=== PATIENT | female | born 1930 | race Caucasian/White ===

== ENCOUNTER 2017-11-01 10:16 | Inpatient (IN) | payer MEDICARE, OTHER ==
[2017-11-01 11:03] LABS: BASO % 0.2 % (0.0-1.0); EOS % 0.1 % (0.0-3.0); HEMATOCRIT 43.4 % (36.0-47.0); HEMOGLOBIN 14.6 g/dl (12.0-15.5); IMMATURE GRANULOCYTE % 0.2 % (0-3.0); MEAN CORPUSCULAR HEMOGLOBIN 32.7 pg (27.0-33.0); MEAN CORPUSCULAR HGB CONC 33.6 g/dl (32.0-36.5); MEAN CORPUSCULAR VOLUME 97.3 fl (80.0-96.0); MONO # 1.2 10^3/uL (0.0-0.8); MONO % 9.6 % (0.0-5.0); NEUTROPHILS # 9.8 10^3/uL (1.8-7.7); NEUTROPHILS % 81.9 % (36.0-66.0); PLATELET COUNT, AUTOMATED 167 10^3/uL (150-450); RED BLOOD COUNT 4.46 10^6/uL (4.00-5.40); RED CELL DISTRIBUTION WIDTH 12.9 % (11.5-14.5)
[2017-11-01 11:14] LABS: ANION GAP 5 MEQ/L (8-16); BLOOD UREA NITROGEN 17 MG/DL (7-18); CALCIUM LEVEL 9.1 MG/DL (8.8-10.2); CARBON DIOXIDE LEVEL 32 MEQ/L (21-32); CHLORIDE LEVEL 104 MEQ/L (98-107); CPK CREATINE PHOSPHOKINASE 64 U/L (26-192); CREATININE FOR GFR 1.06 MG/DL (0.55-1.30); GLOMERULAR FILTRATION RATE 52.1 (>32); GLUCOSE, FASTING 146 MG/DL (70-100); MAGNESIUM LEVEL 2.1 MG/DL (1.8-2.4); POTASSIUM SERUM 3.9 MEQ/L (3.5-5.1); SODIUM LEVEL 141 MEQ/L (136-145); TROPONIN I < 0.02 NG/ML (< 0.10)
[2017-11-01 11:20] LABS: CK-MB VALUE MASS 1.1 NG/ML (<3.6); FREE T4 0.91 NG/DL (0.76-1.46); MB/CK RELATIVE INDEX 1.71 (< OR =4); NT-PRO BNP 4862 PG/ML (<450)
[2017-11-01 11:21] LABS: INR 1.22; PARTIAL THROMBOPLASTIN TIME 29.6 SECONDS (26.8-37.9); PROTHROMBIN TIME 15.6 SECONDS (12.4-14.5)
[2017-11-01] MEDS: FUROSEMIDE 40 MG/4 ML VIAL (J1940) IV (11:48)
[2017-11-01 11:55] LABS: ALBUMIN 3.4 GM/DL (3.2-5.2); ALBUMIN/GLOBULIN RATIO 0.77 (1.00-1.93); ALKALINE PHOSPHATASE 75 U/L (45-117); ALT/SGPT 16 U/L (12-78); AST/SGOT 18 U/L (7-37); BILIRUBIN,DIRECT 0.3 MG/DL (0.0-0.2); BILIRUBIN,TOTAL 1.5 MG/DL (0.2-1.0); TOTAL PROTEIN 7.8 GM/DL (6.4-8.2)
[2017-11-01] MEDS: METOPROLOL TART 25 MG TABLET PO ×3 (12:26→20:16)
[2017-11-01] MEDS: METOPROLOL 5 MG/5 ML VIAL IV ×6 (12:26→13:55)
[2017-11-01] MEDS: DOCUSATE SODIUM 100 MG CAP PO (16:30)
[2017-11-01 19:02] LABS: CK-MB VALUE MASS < 1.0 NG/ML (<3.6); CPK CREATINE PHOSPHOKINASE 65 U/L (26-192); MB/CK RELATIVE INDEX 1.53 (< OR =4); TROPONIN I < 0.02 NG/ML (< 0.10)
[2017-11-01] MEDS: APIXABAN 2.5 MG TAB (ELIQUIS) PO (20:16)
[2017-11-01] MEDS ORDERED: METOPROLOL TART 25 MG TABLET PO (21:00)
[2017-11-02] MEDS: SODIUM CHLORIDE 0.9% 1000 ML IV (00:17)
[2017-11-02 00:50] LABS: BASO % 0.2 % (0.0-1.0); EOS % 0.1 % (0.0-3.0); HEMATOCRIT 40.1 % (36.0-47.0); HEMOGLOBIN 13.7 g/dl (12.0-15.5); IMMATURE GRANULOCYTE % 0.5 % (0-3.0); LYMPH # 1.1 10^3/uL (1.5-4.5); LYMPH % 8.3 % (24.0-44.0); MEAN CORPUSCULAR HEMOGLOBIN 32.5 pg (27.0-33.0); MEAN CORPUSCULAR HGB CONC 34.2 g/dl (32.0-36.5); MEAN CORPUSCULAR VOLUME 95.2 fl (80.0-96.0); MONO # 1.5 10^3/uL (0.0-0.8); MONO % 11.5 % (0.0-5.0); NEUTROPHILS # 10.6 10^3/uL (1.8-7.7); NEUTROPHILS % 79.4 % (36.0-66.0); PLATELET COUNT, AUTOMATED 151 10^3/uL (150-450); RED BLOOD COUNT 4.21 10^6/uL (4.00-5.40); WHITE BLOOD COUNT 13.3 10^3/uL (4.0-10.0)
[2017-11-02] MEDS: METOPROLOL TART 25 MG TABLET PO ×3 (01:03→21:01)
[2017-11-02 01:14] LABS: LACTIC ACID SEPSIS PROTOCOL 1.1 MMOL/L (0.4-2.0)
[2017-11-02] MEDS: VANCOMYCIN HCL 1,000 MG, VIAL MATE ADAPTER 1 EACH in D5W 250 ML IV (01:51)
[2017-11-02] MEDS: ACETAMINOPHEN TAB 650MG DOSE (2X325MG) PO ×2 (01:52→14:29)
[2017-11-02] MEDS ORDERED: AZTREONAM 1 GM in D5W MINI-BAG PLUS 50 ML IV (02:00)
[2017-11-02] MEDS: AZTREONAM 1 GM in D5W MINI-BAG PLUS 50 ML IV (02:55)
[2017-11-02] MEDS: METOPROLOL 5 MG/5 ML VIAL IV (03:55)
[2017-11-02 04:33] LABS: HEMATOCRIT 37.9 % (36.0-47.0); HEMOGLOBIN 13.1 g/dl (12.0-15.5); MEAN CORPUSCULAR HGB CONC 34.6 g/dl (32.0-36.5); MEAN CORPUSCULAR VOLUME 95.5 fl (80.0-96.0); PLATELET COUNT, AUTOMATED 145 10^3/uL (150-450); RED BLOOD COUNT 3.97 10^6/uL (4.00-5.40); RED CELL DISTRIBUTION WIDTH 12.8 % (11.5-14.5); WHITE BLOOD COUNT 12.9 10^3/uL (4.0-10.0)
[2017-11-02 04:59] LABS: ANION GAP 9 MEQ/L (8-16); BLOOD UREA NITROGEN 19 MG/DL (7-18); CALCIUM LEVEL 8.5 MG/DL (8.8-10.2); CARBON DIOXIDE LEVEL 26 MEQ/L (21-32); CHLORIDE LEVEL 103 MEQ/L (98-107); CREATININE FOR GFR 0.91 MG/DL (0.55-1.30); GLOMERULAR FILTRATION RATE > 60.0 (>32); GLUCOSE, FASTING 142 MG/DL (70-100); POTASSIUM SERUM 3.4 MEQ/L (3.5-5.1); SODIUM LEVEL 138 MEQ/L (136-145)
[2017-11-02] MEDS: APIXABAN 2.5 MG TAB (ELIQUIS) PO (08:47)
[2017-11-02] MEDS: cefTRIAXone SOD 1 GM in D5W MINI-BAG PLUS 50 ML IV (08:47)
[2017-11-02] MEDS: DIGOXIN INJ 0.5 MG/2 ML AMP (J1160) IV ×2 (11:37→14:00)
[2017-11-02] MEDS ORDERED: VANCOMYCIN HCL 1,000 MG, VIAL MATE ADAPTER 1 EACH in D5W/0.2% SODIUM CHLORIDE 250 ML IV (12:00)
[2017-11-02] MEDS: POTASSIUM CHLORIDE 10 MEQ SR TABLET PO (12:20)
[2017-11-02] MEDS: FUROSEMIDE 40 MG/4 ML VIAL (J1940) IV ×2 (12:21)
[2017-11-02 13:42] LABS: APPEARANCE, URINE HAZY (CLEAR); BACTERIA, URINE AUTO NEGATIVE (NEGATIVE); BILIRUBIN, URINE AUTO NEGATIVE (NEGATIVE); BLOOD, URINE BLOOD NEGATIVE (NEGATIVE); COLOR, URINE YELLOW (YELLOW); GLUCOSE, URINE (UA) AUTO NEGATIVE (NEGATIVE); KETONE, URINE AUTO NEGATIVE (NEGATIVE); LEUKOCYTE ESTERASE, URINE AUTO 1+ (NEGATIVE); MUCUS, URINE SMALL (NEGATIVE); NITRITE, URINE AUTO NEGATIVE (NEGATIVE); PROTEIN, URINE AUTO NEGATIVE (NEGATIVE); RBC, URINE AUTO 2 /HPF (0-3); SPECIFIC GRAVITY URINE AUTO 1.014 (1.002-1.035); SQUAMOUS EPITHELIAL CELL UR AU 0 /HPF (0-6); UROBILINOGEN, URINE AUTO 0.2 mg/dL (0.0-2.0); WBC, URINE AUTO 22 /HPF (0-3)
[2017-11-02] MEDS ORDERED: METOPROLOL TART 25 MG TABLET PO (14:00)
[2017-11-02] MEDS: APIXABAN 5 MG TAB (ELIQUIS) PO (21:02)
[2017-11-02] MEDS: DOCUSATE SODIUM 100 MG CAP PO (21:04)
[2017-11-03] MEDS: FUROSEMIDE 40 MG/4 ML VIAL (J1940) IV ×2 (00:31→11:18)
[2017-11-03 00:39] LABS: BEDSIDE GLUCOSE 50 MG/DL (83-110)
[2017-11-03 00:41] LABS: BEDSIDE GLUCOSE 133 MG/DL (83-110)
[2017-11-03] MEDS: MORPHINE 4 MG/ML 1ML VIAL/SYRINGE (J2270) IV ×2 (03:10→23:27)
[2017-11-03] MEDS: ONDANSETRON 4 MG TAB (S0181) PO (03:11)
[2017-11-03] MEDS ORDERED: PERCOCET 5MG/325MG TAB PO (03:15)
[2017-11-03 05:47] LABS: HEMATOCRIT 39.7 % (36.0-47.0); HEMOGLOBIN 13.5 g/dl (12.0-15.5); MEAN CORPUSCULAR HEMOGLOBIN 32.7 pg (27.0-33.0); MEAN CORPUSCULAR VOLUME 96.1 fl (80.0-96.0); PLATELET COUNT, AUTOMATED 173 10^3/uL (150-450); RED BLOOD COUNT 4.13 10^6/uL (4.00-5.40); RED CELL DISTRIBUTION WIDTH 12.8 % (11.5-14.5); WHITE BLOOD COUNT 11.2 10^3/uL (4.0-10.0)
[2017-11-03] MEDS: cefTRIAXone SOD 1 GM in D5W MINI-BAG PLUS 50 ML IV (05:59)
[2017-11-03 06:01] LABS: ANION GAP 6 MEQ/L (8-16); BLOOD UREA NITROGEN 26 MG/DL (7-18); CALCIUM LEVEL 8.5 MG/DL (8.8-10.2); CARBON DIOXIDE LEVEL 28 MEQ/L (21-32); CHLORIDE LEVEL 101 MEQ/L (98-107); CREATININE FOR GFR 1.04 MG/DL (0.55-1.30); GLOMERULAR FILTRATION RATE 53.2 (>32); GLUCOSE, FASTING 162 MG/DL (70-100); POTASSIUM SERUM 3.8 MEQ/L (3.5-5.1); SODIUM LEVEL 135 MEQ/L (136-145)
[2017-11-03] MEDS: APIXABAN 5 MG TAB (ELIQUIS) PO ×2 (09:12→20:38)
[2017-11-03] MEDS: DIGOXIN 0.25 MG TAB PO (09:12)
[2017-11-03] MEDS: POTASSIUM CHLORIDE 10 MEQ SR TABLET PO (09:13)
[2017-11-03] MEDS: SENOKOT S TAB PO ×2 (09:13→20:38)
[2017-11-03] MEDS: METOPROLOL TART 25 MG TABLET PO ×2 (10:31→20:38)
[2017-11-03 11:11] LABS: BEDSIDE GLUCOSE 152 MG/DL (83-110)
[2017-11-03 16:46] LABS: BEDSIDE GLUCOSE 140 MG/DL (83-110)
[2017-11-04 00:17] LABS: CK-MB VALUE MASS < 1.0 NG/ML (<3.6); CPK CREATINE PHOSPHOKINASE 26 U/L (26-192); MB/CK RELATIVE INDEX 3.84 (< OR =4); TROPONIN I < 0.02 NG/ML (< 0.10)
[2017-11-04] MEDS: FUROSEMIDE 40 MG/4 ML VIAL (J1940) IV (00:42)
[2017-11-04 01:40] LABS: BEDSIDE GLUCOSE 156 MG/DL (83-110)
[2017-11-04 05:40] LABS: HEMATOCRIT 39.3 % (36.0-47.0); HEMOGLOBIN 13.3 g/dl (12.0-15.5); MEAN CORPUSCULAR HEMOGLOBIN 32.7 pg (27.0-33.0); MEAN CORPUSCULAR HGB CONC 33.8 g/dl (32.0-36.5); MEAN CORPUSCULAR VOLUME 96.6 fl (80.0-96.0); PLATELET COUNT, AUTOMATED 188 10^3/uL (150-450); RED BLOOD COUNT 4.07 10^6/uL (4.00-5.40); RED CELL DISTRIBUTION WIDTH 12.5 % (11.5-14.5); WHITE BLOOD COUNT 8.5 10^3/uL (4.0-10.0)
[2017-11-04 06:02] LABS: ANION GAP 7 MEQ/L (8-16); BLOOD UREA NITROGEN 27 MG/DL (7-18); CALCIUM LEVEL 8.6 MG/DL (8.8-10.2); CARBON DIOXIDE LEVEL 30 MEQ/L (21-32); CHLORIDE LEVEL 99 MEQ/L (98-107); CPK CREATINE PHOSPHOKINASE 22 U/L (26-192); CREATININE FOR GFR 1.07 MG/DL (0.55-1.30); GLOMERULAR FILTRATION RATE 51.5 (>32); GLUCOSE, FASTING 158 MG/DL (70-100); SODIUM LEVEL 136 MEQ/L (136-145); TROPONIN I < 0.02 NG/ML (< 0.10)
[2017-11-04 06:12] LABS: CK-MB VALUE MASS < 1.0 NG/ML (<3.6); DIGOXIN LEVEL 1.8 NG/ML (0.5-2.0); MB/CK RELATIVE INDEX 4.54 (< OR =4)
[2017-11-04] MEDS: cefTRIAXone SOD 1 GM in D5W MINI-BAG PLUS 50 ML IV (07:06)
[2017-11-04] MEDS: METOPROLOL TART 25 MG TABLET PO ×2 (09:00→21:38)
[2017-11-04] MEDS: SENOKOT S TAB PO ×2 (09:37→21:38)
[2017-11-04] MEDS: POTASSIUM CHLORIDE 10 MEQ SR TABLET PO (09:39)
[2017-11-04] MEDS: APIXABAN 5 MG TAB (ELIQUIS) PO ×2 (09:39→21:38)
[2017-11-04] MEDS: DIGOXIN 0.125 MG TAB PO (21:38)
[2017-11-05] MEDS: MORPHINE 4 MG/ML 1ML VIAL/SYRINGE (J2270) IV (00:44)
[2017-11-05] MEDS ORDERED: SLF 3 ML SYR IV (02:15)
[2017-11-05 05:24] LABS: HEMATOCRIT 38.6 % (36.0-47.0); HEMOGLOBIN 13.4 g/dl (12.0-15.5); MEAN CORPUSCULAR HEMOGLOBIN 32.9 pg (27.0-33.0); MEAN CORPUSCULAR HGB CONC 34.7 g/dl (32.0-36.5); MEAN CORPUSCULAR VOLUME 94.8 fl (80.0-96.0); PLATELET COUNT, AUTOMATED 210 10^3/uL (150-450); RED BLOOD COUNT 4.07 10^6/uL (4.00-5.40); RED CELL DISTRIBUTION WIDTH 12.3 % (11.5-14.5); WHITE BLOOD COUNT 7.3 10^3/uL (4.0-10.0)
[2017-11-05 05:42] LABS: ANION GAP 6 MEQ/L (8-16); BLOOD UREA NITROGEN 21 MG/DL (7-18); CALCIUM LEVEL 8.7 MG/DL (8.8-10.2); CARBON DIOXIDE LEVEL 29 MEQ/L (21-32); CHLORIDE LEVEL 101 MEQ/L (98-107); CREATININE FOR GFR 0.86 MG/DL (0.55-1.30); GLOMERULAR FILTRATION RATE > 60.0 (>32); GLUCOSE, FASTING 144 MG/DL (70-100); POTASSIUM SERUM 3.9 MEQ/L (3.5-5.1); SODIUM LEVEL 136 MEQ/L (136-145)
[2017-11-05] MEDS: SLF 3 ML SYR IV ×3 (06:30→20:59)
[2017-11-05] MEDS: cefTRIAXone SOD 1 GM in D5W MINI-BAG PLUS 50 ML IV (06:30)
[2017-11-05] MEDS: DIGOXIN 0.125 MG TAB PO (07:27)
[2017-11-05] MEDS: SENOKOT S TAB PO ×2 (09:32→20:58)
[2017-11-05] MEDS: APIXABAN 5 MG TAB (ELIQUIS) PO ×2 (09:32→20:58)
[2017-11-05] MEDS: METOPROLOL TART 25 MG TABLET PO ×2 (09:32→20:58)
[2017-11-05] MEDS: DOCUSATE SODIUM 100 MG CAP PO ×2 (09:32→20:58)
[2017-11-06 05:51] LABS: HEMATOCRIT 38.3 % (36.0-47.0); HEMOGLOBIN 13.2 g/dl (12.0-15.5); MEAN CORPUSCULAR HEMOGLOBIN 32.5 pg (27.0-33.0); MEAN CORPUSCULAR HGB CONC 34.5 g/dl (32.0-36.5); MEAN CORPUSCULAR VOLUME 94.3 fl (80.0-96.0); PLATELET COUNT, AUTOMATED 225 10^3/uL (150-450); RED BLOOD COUNT 4.06 10^6/uL (4.00-5.40); RED CELL DISTRIBUTION WIDTH 12.2 % (11.5-14.5); WHITE BLOOD COUNT 8.7 10^3/uL (4.0-10.0)
[2017-11-06] MEDS: SLF 3 ML SYR IV (05:59)
[2017-11-06] MEDS: cefTRIAXone SOD 1 GM in D5W MINI-BAG PLUS 50 ML IV (05:59)
[2017-11-06 06:05] LABS: ANION GAP 4 MEQ/L (8-16); BLOOD UREA NITROGEN 17 MG/DL (7-18); CALCIUM LEVEL 8.8 MG/DL (8.8-10.2); CARBON DIOXIDE LEVEL 31 MEQ/L (21-32); CHLORIDE LEVEL 101 MEQ/L (98-107); CREATININE FOR GFR 0.79 MG/DL (0.55-1.30); GLOMERULAR FILTRATION RATE > 60.0 (>32); GLUCOSE, FASTING 123 MG/DL (70-100); POTASSIUM SERUM 4.1 MEQ/L (3.5-5.1); SODIUM LEVEL 136 MEQ/L (136-145)
[2017-11-06] MEDS: APIXABAN 5 MG TAB (ELIQUIS) PO (07:40)
[2017-11-06] MEDS: METOPROLOL TART 25 MG TABLET PO (07:41)
[2017-11-06] MEDS: DIGOXIN 0.125 MG TAB PO (07:41)
[2017-11-06] MEDS: SENOKOT S TAB PO (07:41)
== END 2017-11-06 10:30 | disposition home or self-care (01) | DRG 308 ==
LOC: M ED 10:16 → M ED INP 13:34 → M PCU 16:11
DX: I48.91 Unspecified atrial fibrillation (principal); J18.9 Pneumonia, unspecified organism; I50.32 Chronic diastolic (congestive) heart failure; Z79.899 Other long term (current) drug therapy; Z88.0 Allergy status to penicillin; Z88.2 Allergy status to sulfonamides; Z88.8 Allergy status to other drugs, medicaments and biological substances; D72.829 Elevated white blood cell count, unspecified; E87.6 Hypokalemia; R50.9 Fever, unspecified

== ENCOUNTER → 2017-11-27 | Outpatient (CLI) | payer MEDICARE, OTHER ==
[2017-11-27 14:42] LABS: DIGOXIN LEVEL 0.7 NG/ML (0.5-2.0)
== END ==
LOC: M SMT 10:49
DX: I48.91 Unspecified atrial fibrillation (principal)
CPT/HCPCS: 80162

== ENCOUNTER → 2017-12-15 | Outpatient (CLI) | payer MEDICARE, OTHER ==
[2017-12-15 17:38] LABS: ANION GAP 4 MEQ/L (8-16); BLOOD UREA NITROGEN 22 MG/DL (7-18); CALCIUM LEVEL 9.1 MG/DL (8.8-10.2); CARBON DIOXIDE LEVEL 32 MEQ/L (21-32); CHLORIDE LEVEL 105 MEQ/L (98-107); CREATININE FOR GFR 0.87 MG/DL (0.55-1.30); DIGOXIN LEVEL 0.4 NG/ML (0.5-2.0); GLOMERULAR FILTRATION RATE > 60.0 (>32); GLUCOSE, FASTING 144 MG/DL (70-100); POTASSIUM SERUM 3.9 MEQ/L (3.5-5.1); SODIUM LEVEL 141 MEQ/L (136-145)
== END ==
LOC: M SMT 13:35
DX: R06.02 Shortness of breath (principal); I34.1 Nonrheumatic mitral (valve) prolapse; I48.91 Unspecified atrial fibrillation
CPT/HCPCS: 80162